=== PATIENT | male | born 1935 | race Caucasian/White ===

== ENCOUNTER 2020-04-28 09:22 | Outpatient (CLI) | payer MEDICARE, SELFPAY ==
--- NOTE | 2020-04-28 11:00 | NEURO_ITS ---
Patient Number: [id number] Impression: # Complains of pain in left elbow joint and weakness. # No Carpal Tunnel Syndrome. # Left ulnar neuropathy around the elbow. # Normal needle/EMG exam except 1st DI and ADM mildly neurogenic. # Clinical correlation recommended. Nerve Conduction Studies Anti Sensory Summary Table Stim Site NR Peak (ms) P-T Amp (?V) Site1 Site2 Delta-P (ms) Dist (cm) Tera (m/s) Left Median Anti Sensory (2-3nd Digit) Wrist 3.8 12.6 Wrist 2-3nd Digit 3.8 14.0 37 Wrist 3.9 15.5 Wrist 2-3nd Digit 3.8 14.0 37 Left Radial Anti Sensory (Base 1st Digit) Wrist 2.7 24.4 Wrist Base 1st Digit 2.7 0.0 Left Ulnar Anti Sensory (5th Digit) Wrist 3.3 10.0 Wrist 5th Digit 3.3 14.0 42 Motor Summary Table Stim Site NR Onset (ms) O-P Amp (mV) Site1 Site2 Delta-0 (ms) Dist (cm) Tera (m/s) Left Median Motor (Abd Poll Brev) Wrist 4.2 1.2 Elbow Wrist 6.0 30.0 50 Elbow 10.2 0.6 Left Ulnar Motor (Abd Dig Minimi) Wrist 3.6 1.5 A Elbow Wrist 8.6 30.0 35 A Elbow 12.2 0.4 B Elbow Wrist 6.5 26.0 40 B Elbow 10.1 0.4 F Wave Studies NR F-Lat (ms) L-R F-Lat (ms) Left Median (Mrkrs) (Abd Poll Brev) 33.01 Left Ulnar (Mrkrs) (Abd Dig Min) 29.18 EMG Side Muscle Nerve Root Ins Act Fibs Amp Dur Recrt Comment Left 1stDorInt Ulnar C8-T1 Nml Nml Incr >12ms Reduced Left Ext Indicis Radial (Post Int) C7-8 Nml Nml Nml Nml Nml Left Ext Digitorum Radial (Post Int) C7-8 Nml Nml Nml Nml Nml Left BrachioRad Radial C5-6 Nml Nml Nml Nml Nml Left PronatorTeres Median C6-7 Nml Nml Nml Nml Nml Left Abd Poll Brev Median C8-T1 Nml Nml Nml Nml Nml Left ABD Dig Min Ulnar C8-T1 Nml Nml Incr >12ms Reduced Left Anconeus Radial C7-8 Nml Nml Nml Nml Nml Left Biceps Musculocut C5-6 Nml Nml Nml Nml Nml Left Brachialis Musculocut C5-6 Nml Nml Nml Nml Nml Left Triceps Radial C6-7-8 Nml Nml Nml Nml Nml MTDD
== END 2020-04-28 09:23 | disposition home or self-care (01) ==
LOC: ANHNEURO 09:26
PROVIDERS: PCP Internal Medicine; Visit Provider Orthopaedic Surgery
DX: M25.522 Pain in left elbow (principal); G56.22 Lesion of ulnar nerve, left upper limb
CPT/HCPCS: 95886; 95909

== ENCOUNTER 2022-11-29 12:31 | Outpatient (CLI) | payer MEDICARE, SELFPAY | END 2022-11-29 12:32 | disposition home or self-care (01) | LOC: ANHAUDIO 12:33 | PROVIDERS: PCP Internal Medicine; Visit Provider Otolaryngology | DX: H90.3 Sensorineural hearing loss, bilateral (principal) | CPT/HCPCS: 92557; 92567 ==